=== PATIENT | female | born 1955 | race African-American/Black ===

== ENCOUNTER 2017-06-11 08:30 | Inpatient (IN) | payer BC ==
[2017-06-18] MEDS ORDERED: Fentanyl 250 MCG/5 ML VIAL ONE ×3 (07:14→11:51)
[2017-06-18] MEDS ORDERED: Midazolam HCl 2 mg/2 ml Vial ONE (07:14)
[2017-06-18] MEDS ORDERED: Bupivacaine/Epinephrine 0.25% 30 ML VIAL ONE (07:30)
[2017-06-18] MEDS ORDERED: CEFAZOLIN/Water 2 GM/20 ML SYRINGE ONE (07:39)
[2017-06-18] MEDS ORDERED: Vancomycin HCl 1.5 GM in Sodium Chloride 0.9% 250 ML 300 ML IVPB SCH ×2 (07:45→20:00)
[2017-06-18] MEDS ORDERED: Ondansetron HCl/PF 4 MG/2 ML Vial IVP PRN ×3 (07:49→12:46)
[2017-06-18] MEDS ORDERED: HYDROcodone/Acetaminophen 10/325 mg Tablet PO PRN (07:49)
[2017-06-18] MEDS ORDERED: Promethazine HCl 25 MG/ML VIAL IM PRN ×2 (07:49→12:06)
[2017-06-18] MEDS ORDERED: traMADol HCl 50 MG TAB PO PRN ×2 (07:49→11:35)
[2017-06-18] MEDS ORDERED: Fentanyl 100 MCG/2 ML VIAL IV PRN (07:49)
[2017-06-18] MEDS ORDERED: Ropivacaine 0.2% 550 ML 550 ML NERVE BLCK SCH (07:49)
[2017-06-18] MEDS ORDERED: Fentanyl 100 MCG/2 ML VIAL SLOW IVP PRN (11:35)
[2017-06-18] MEDS ORDERED: diphenhydrAMINE 25 MG CAP PO PRN (11:35)
[2017-06-18] MEDS ORDERED: Acetaminophen 325 MG TAB PO PRN (11:35)
[2017-06-18] MEDS ORDERED: Tranexamic Acid 1,000 MG in Sodium Chloride 0.9% 100 ML IVPB SCH (11:45)
[2017-06-18] MEDS ORDERED: Promethazine HCl 25 MG/ML VIAL SLOW IVP PRN (12:06)
--- NOTE | 2017-06-18 12:44 | RAD ---
LEFT KNEE TWO VIEWS: History: Left knee replacement. FINDINGS: Left knee prosthesis is in place without perihardware lucency. Soft tissue and intraarticular swellin g and gas are apparent. IMPRESSION: Left knee prosthesis is in good radiographic position. POS: [facility]
[2017-06-18] MEDS ORDERED: Non-Formulary Medication 1 EACH PO PRN (12:46)
[2017-06-18] MEDS ORDERED: Promethazine HCl 25 MG/ML VIAL IM/IV PRN (12:46)
[2017-06-18] MEDS: Ketorolac Tromethamine 30 MG/ML VIAL IVP PRN (13:48)
--- NOTE | 2017-06-18 13:48 | OP ---
PREOPERATIVE DIAGNOSIS: Right knee osteoarthritis. POSTOPERATIVE DIAGNOSIS: Right knee osteoarthritis. PROCEDURE PERFORMED: Right total knee arthroplasty. STAFF: Amol Zamudio M.D. TOLL OPERATOR: Joselito Ross PA-C ANESTHESIA: Reyes. The patient received general endotracheal intubation with a single-shot adductor with a saphenous catheter. ESTIMATED BLOOD LOSS: 100 mL TOURNIQUET TIME: 19 minutes, 300 mmHg. ANTIBIOTICS: Ancef 2 grams, vancomycin 1.5 grams, patient received 1 gram of TXA. IMPLANTS: [place] Triathlon A29 patella, 9 mm CS Triathlon X3 poly, size 4 femur CS femur, size 4 ti bial tray. The patient had A29 patella. COMPLICATIONS: None. HISTORY OF PRESENT ILLNESS: Ms. Prado is a pleasant 61-year-old female who presented to me with rig ht knee pain. The patient had significant deformity of her knee. She only had motion for about 10-9 0 degrees. The patient had significant arthritis and pain and pain is rated as a 3-8 of 10. The freya kitchen had pain at all times, desired to have right total knee arthroplasty. I discussed with the charley ent he has significant deformity and may not regain all of her motion. I discussed that she would li teto regain relief. I discussed the increased risks and benefits of surgery, pain, scar, bleeding, i nfection, damage to vital structures, decreased range or strength, failure of procedure, damage to ne rves, arteries, tendons, loss of life or limb, blood clots, need for further surgeries. The patient understood the risks and benefits and elected to proceed. Time out was performed designating the freya kitchen's right lower extremity as the operative site based on sight, consents, and markings. PROCEDURE IN DETAIL: After timeout, the patient's tourniquet was brought up for a total of 90 minute s. Anterior mid incision made with medial patellar arthrotomy, everted the patella. I did take oste ophytes off the patella and off the femur. The patient only was able to flex about 80 degrees on the table after we rongeured the osteophytes off the proximal femur and the patella. We did a medial so ft tissue release taking off the sleeve, excised the fat pad and better exposed the patient's distal femur. We then pinned our tray into position, mapped out distal femur. We cut in 0 degrees varus va lgus, 4 degrees anterior slope and we cut about 11 and 7 respectively, had a good butterfly cut. We removed all the osteophytes and then we removed osteophytes in medial plateau as well as anteriorly, cut the top of the tibial eminences. To then pin our tibial tray into place, we mapped out, cut 2 an d 5 degrees varus valgus, 4 degrees posterior slope, removed the bone, rasped down the medial side, r emoved the osteophytes medially. We then placed lamina commodity merchant medially, excised the medial meniscu s , had a large osteophyte posteriorly which I had to take out with piecemeal curet and some carroll martín when I could see it and removed all those I then knocked off posterior osteophytes. Ensured med ial side was completely released, had all the completion medially. I then moved laterally. I then r emoved osteophytes posteriorly, removed all those, knocked off posterior osteophytes, freed all the l ateral meniscus, ensured that I had good overall position of the patient's lateral meniscus and later al soft tissue compartment, decompressed the TCL completely with all the osteophytes posteriorly, fel t like I had a good decompression. I was overall happy, we then trialled with a size 4, I had a good fit at the 4, we trialed, placed it and pinned into position. We then placed a 9 mm poly, had good tracking and overall liked the alignment and position. I then everted the patella, cut the patella f rom about 23 down to about 14. She had massive osteophytes that had taken up space that I had alread y removed. I trimmed and liked the overall alignment of the patella, placed a drill bit and tracked well. Had no malalignment. We then removed the patella. We then removed and cut our keel for tibia , removed all the implants. We then placed keel into position, removed all our ostephytes and then w ashed. We then cemented our tibia, placed our 9 mm poly. We then cemented our femur, removed excess cement, everted the patella and cemented the patella, radial axis and flexed back up and left turn i n about 15 degrees of flexion. We closed with #2 Vicryl, #2 Quill, 0 Quill, 2-0 Quill, and glue. Th e patient will be admitted for observation overnight, likely potentially need rehab admission. The p don will follow in house.
[2017-06-18] MEDS ORDERED: CEFAZOLIN/Water 2 GM/20 ML SYRINGE SLOW IVP SCH (14:00)
[2017-06-18] MEDS: Dextrose 5 %-0.45 % NaCl 1,000 ML IV SCH ×2 (14:31→21:38)
[2017-06-18] MEDS: HYDROcodone/Acetaminophen 10/325 mg Tablet PO PRN ×3 (14:36→23:45)
[2017-06-18] MEDS ORDERED: Dextrose 50% Abboject 50 ML SYRINGE SLOW IVP PRN (15:06)
[2017-06-18] MEDS ORDERED: Dextrose 5% in Water 1,000 ML IV PRN (15:06)
--- NOTE | 2017-06-18 15:21 | CON ---
DATE OF CONSULTATION: 06/18/2017 PRIMARY CARE PHYSICIAN: Amol Zamudio M.D. CONSULTING PHYSICIAN: Alok Smiley M.D. CHIEF COMPLAINT: Right knee degenerative joint disease. HOSPITAL COURSE: The patient is a pleasant 61-year-old female with history of degenerative joint dis ease. She has undergone a right total knee replacement this admission. She does have a history of h ypertension, dyslipidemia, and obesity. We have been consulted to assist in medical management. Dur ing my interview, the patient denies chest pain. She denies joint pain. She denies shortness of juliana ath, fever, chills, nausea or vomiting. REVIEW OF SYSTEMS: The following complete review of systems was negative, unless otherwise mentioned in the HPI or below: Constitutional: Weight loss or gain, sense of well-being, ability to conduct usual activities, exerc ise tolerance. Skin/Breast: Rash, itching, changes in hair growth or loss, nail changes, breast lumps, tenderness, swelling, nipple discharge. Eyes: Vision, double vision, tearing, blind spots, pain. ENT/Mouth: Headaches (location, time of onset, duration, precipitating factors), vertigo, lightheade dness, injury. Vision, double vision, tearing, blind spots, pain, nose bleeding, colds, obstruction, discharge, dental difficulties, gingival bleeding, dentures, neck stiffness, pain, tenderness, masses in thyroid or other areas Cardiovascular: Precordial pain, substernal distress, palpitations, syncope, dyspnea on exertion, or thopnea, nocturnal paroxysmal dyspnea, edema, cyanosis, hypertension, heart murmurs, varicosities, ph lebitis, claudication. Respiratory: Pain, shortness of breath, wheezing, stridor, cough, hemoptysis, fever or night sweats Gastrointestinal: Poor appetite, dysphagia, indigestion, abdominal pain, heartburn, eructation, naus ea, vomiting, hematemesis, jaundice, constipation, or diarrhea, abnormal stools (denzel-colored, tarry, bloody, greasy, foul smelling), flatulence, hemorrhoids, recent changes in bowel habits. Genitourinary: Urgency, frequency, dysuria, nocturia, hematuria, polyuria, oliguria, unusual (or diamond nge in) color of urine, stones, hesitancy, change in size of stream, dribbling, acute retention or in continence, libido, potency. Musculoskeletal: Pain, swelling, redness or heat of muscles or joints, limitation, of motion, muscul ar weakness, atrophy, cramps. Neurologic/Psychiatric: Convulsions, paralyses, tremor, incoordination, paraesthesias, difficulties with memory of speech, sensory or motor disturbances, or muscular coordination (ataxia, tremor), emot ional problems, anxiety, depression, previous psychiatric care, unusual perceptions, hallucinations. Allergy/Immunologic: Skin rash, anemia, bleeding tendency, polydipsia, polyuria, intolerance to heat or cold. PAST MEDICAL HISTORY: Consistent with hypertension, dyslipidemia, prediabetes, and obesity. SOCIAL HISTORY: Nonsmoker, [employer] employee. Lives with . FAMILY HISTORY: Reviewed and noncontributory. PAST SURGICAL HISTORY: Left total knee replacement. ALLERGIES: No known drug allergies. HOME MEDICATIONS: Aspirin 81 mg every day, atorvastatin 10 mg at bedtime, losartan and hydrochloroth iazide at 100 mg and 25 mg 1 tablet daily, multivitamin 1 tablet every day, and Ambien 5 mg 1 tablet at bedtime as needed. PHYSICAL EXAMINATION: VITAL SIGNS: Her temperature is 36.7 degrees Celsius, blood pressure 138/76, satting 96%, heart rate 91. GENERAL: She is in no acute distress, pleasant, cooperative. HEENT: Normocephalic, atraumatic. LUNGS: Clear to auscultation. CARDIAC: Regular rate and rhythm. No murmurs, regurg, or gallops. ABDOMEN: Obese but nontender, nondistended. EXTREMITIES: No clubbing, cyanosis or edema. There is decreased range of motion of the right leg. NEUROLOGIC: Cranial nerves II-XII grossly intact. She is alert and oriented x3. LABORATORY DATA: CBC from 06/11/2017 shows white blood cell count of 6.0, hemoglobin 13.3, hematocri t 40.4, and platelets 301,000. Coag studies performed on that day showed PT of 13.4, INR 1.0. Chem- 7 from 06/11/2017 show sodium 140, potassium 3.1, chloride 103, CO2 28, BUN 17, creatinine 0.88, gluc ose 142, AST 13, ALT 10, alkaline phosphatase 182, and LDL 95. ASSESSMENT AND PLAN: 1. Right-sided total knee replacement. 2. Hypertension. 3. Dyslipidemia. 4. Prediabetes. PLAN: Patient is admitted to the primary service of Orthopedics. They will manage her pain control and rehabilitation. As far as hypertension, the patient's blood pressure is controlled at this time. We will continue her home regimen and make changes accordingly. For her history of hyperglycemia/p rediabetes, we will perform Accu-Cheks q.a.c. and at bedtime and institute low dose sliding scale ins ulin as needed. DVT prophylaxis will be with SCDs until anticoagulation can be instituted safely pos top.
[2017-06-18] MEDS ORDERED: Ropivacaine 0.2% HCl/PF (40 MG/20 ML VIAL) ONE (17:08)
[2017-06-18] MEDS ORDERED: Ropivacaine 0.5% HCl/PF (150 MG/30 ML VIAL) ONE (17:08)
[2017-06-18] MEDS ORDERED: Propofol 200 MG/20 ML VIAL ONE (17:30)
[2017-06-18] MEDS ORDERED: Lidocaine 1% PF 5 ML VIAL ONE (17:30)
[2017-06-18] MEDS ORDERED: Dexamethasone 20 MG/5 ML VIAL ONE (17:30)
[2017-06-18] MEDS ORDERED: Ondansetron HCl/PF 4 MG/2 ML Vial ONE (17:30)
[2017-06-18] MEDS: HumaLOG 300 UNITS/3 ML VIAL SC PRN ×2 (19:03→21:30)
[2017-06-18] MEDS: CEFAZOLIN/Water 2 GM/20 ML SYRINGE SLOW IVP SCH (19:34)
[2017-06-18] MEDS: Atorvastatin Calcium 10 MG TAB PO SCH (20:50)
[2017-06-18] MEDS: Aspirin 81 mg Enteric Coated Tablet PO SCH (20:50)
[2017-06-18] MEDS ORDERED: Zolpidem Tartrate 5 MG TAB PO SCH ×2 (21:00)
[2017-06-18] MEDS ORDERED: Atorvastatin Calcium 10 MG TAB PO SCH (21:00)
[2017-06-18] MEDS: Zolpidem Tartrate 5 MG TAB PO PRN (21:10)
[2017-06-19] MEDS: CEFAZOLIN/Water 2 GM/20 ML SYRINGE SLOW IVP SCH (02:00)
[2017-06-19] MEDS: traMADol HCl 50 MG TAB PO PRN ×2 (02:40→09:13)
[2017-06-19 06:09] LABS: Hemoglobin 11.4 g/dL (12.0-16.0); Mean Corpuscular HGB CONC 34.4 g/dL (32.0-36.0); Mean Corpuscular Hemoglobin 31.8 pg (27.0-31.0); Mean Corpuscular Volume 92.5 fl (81.0-99.0); Mean Platelet Volume 6.6 fL (7.4-10.4); Platelet Count 248 thou/uL (130-400); RBC Distribution Width 11.8 % (11.5-14.5); Red Blood Cell (RBC) Count 3.59 mill/uL (4.20-5.40); White Blood Cell (WBC) Count 9.3 thou/uL (4.8-10.8)
[2017-06-19] MEDS: HYDROcodone/Acetaminophen 10/325 mg Tablet PO PRN ×4 (06:30→18:38)
[2017-06-19] MEDS: Dextrose 5 %-0.45 % NaCl 1,000 ML IV SCH ×2 (07:07→17:25)
[2017-06-19] MEDS ORDERED: Aspirin 81 mg Enteric Coated Tablet PO SCH (09:00)
[2017-06-19] MEDS ORDERED: Multivitamin W/ Minerals 1 TAB PO SCH (09:00)
[2017-06-19] MEDS: Ketorolac Tromethamine 30 MG/ML VIAL IVP PRN (09:14)
[2017-06-19] MEDS: Senokot S 8.6-50 MG TAB PO SCH ×2 (09:20→20:54)
[2017-06-19] MEDS: Aspirin 81 mg Enteric Coated Tablet PO SCH ×2 (09:20→20:54)
[2017-06-19] MEDS: Ferrous Gluconate 324 MG TAB PO SCH ×2 (09:20→20:53)
[2017-06-19] MEDS: Multivitamin W/ Minerals 1 TAB PO SCH (09:20)
[2017-06-19] MEDS: Losartan/Hydrochlorothiazide 100 mg/25 mg Tablet PO SCH ×2 (09:21→09:23)
--- NOTE | 2017-06-19 11:12 | PDOC.PN ---
- Subjective Encounter Start Date: 06/19/17 Encounter Start Time: 11:11 Subjective: doing well. working with PT at this time - Objective Vital Signs & Weight: Vital Signs (12 hours) Temp Pulse Resp BP Pulse Ox 06/19/17 07:32 98.4 F 69 16 137/70 94 L 06/19/17 05:27 97.8 F 66 16 121/72 98 06/19/17 04:00 97.8 F 66 16 121/72 98 06/19/17 00:00 98.4 F 68 18 134/76 97 Weight Admit Weight 242 lb 15.888 oz Weight 242 lb 15.888 oz I&O: 06/18/17 06/19/17 06/20/17 06:59 06:59 06:59 Intake Total 4175 Output Total 1250 Balance 2925 Result Diagrams: 06/19/17 05:39 Additional Labs: Accuchecks 06/19/17 06/18/17 06/18/17 05:09 21:30 19:00 POC Glucose 148 H 189 H 233 H Phys Exam - Physical Examination Constitutional: NAD HEENT: PERRLA, moist MMs, sclera anicteric Neck: supple, full ROM Respiratory: no wheezing, no rhonchi, clear to auscultation bilateral Cardiovascular: RRR, no significant murmur, no rub Gastrointestinal: soft, non-tender, no distention, positive bowel sounds Musculoskeletal: no edema, pulses present Neurological: normal sensation, moves all 4 limbs Psychiatric: normal affect, A&O x 3 Skin: no rash Dx/Plan (1) History of total right knee replacement (TKR) Code(s): Z96.651 - PRESENCE OF RIGHT ARTIFICIAL KNEE JOINT Status: Acute (2) HTN (hypertension) Code(s): I10 - ESSENTIAL (PRIMARY) HYPERTENSION Status: Acute (3) Hyperglycemia Code(s): R73.9 - HYPERGLYCEMIA, UNSPECIFIED Status: Acute - Plan PT/OT DOING QUITE WELL, REHAB SOON AND D/C PER ORTHO * .
[2017-06-19] MEDS: Zolpidem Tartrate 5 MG TAB PO PRN (20:54)
[2017-06-19] MEDS: Atorvastatin Calcium 10 MG TAB PO SCH (20:54)
[2017-06-20] MEDS: Dextrose 5 %-0.45 % NaCl 1,000 ML IV SCH ×2 (02:53→15:55)
[2017-06-20] MEDS: HYDROcodone/Acetaminophen 10/325 mg Tablet PO PRN ×3 (03:36→13:31)
[2017-06-20 04:46] LABS: Hemoglobin 11.1 g/dL (12.0-16.0); Mean Corpuscular HGB CONC 33.6 g/dL (32.0-36.0); Mean Corpuscular Hemoglobin 31.1 pg (27.0-31.0); Mean Corpuscular Volume 92.6 fl (81.0-99.0); Mean Platelet Volume 6.7 fL (7.4-10.4); Platelet Count 246 thou/uL (130-400); RBC Distribution Width 11.7 % (11.5-14.5); Red Blood Cell (RBC) Count 3.58 mill/uL (4.20-5.40); White Blood Cell (WBC) Count 7.6 thou/uL (4.8-10.8)
[2017-06-20] MEDS: HumaLOG 300 UNITS/3 ML VIAL SC PRN ×2 (06:36→16:10)
[2017-06-20] MEDS: Senokot S 8.6-50 MG TAB PO SCH (08:34)
[2017-06-20] MEDS: Multivitamin W/ Minerals 1 TAB PO SCH (08:34)
[2017-06-20] MEDS: Aspirin 81 mg Enteric Coated Tablet PO SCH (08:34)
[2017-06-20] MEDS: Ferrous Gluconate 324 MG TAB PO SCH (08:34)
[2017-06-20] MEDS: Losartan/Hydrochlorothiazide 100 mg/25 mg Tablet PO SCH ×2 (08:36→08:37)
[2017-06-20] MEDS: traMADol HCl 50 MG TAB PO PRN (10:10)
[2017-06-20 10:22] VITALS: BMI 37.9
--- NOTE | 2017-06-20 10:40 | PDOC.PN ---
- Subjective Encounter Start Date: 06/20/17 Encounter Start Time: 10:40 Subjective: Pain and instability, prefers inpatient rehab. - Objective Vital Signs & Weight: Vital Signs (12 hours) Temp Pulse Resp BP Pulse Ox 06/20/17 08:00 98.2 F 81 20 95 06/20/17 07:08 98.2 F 81 20 126/75 95 06/20/17 04:00 98.7 F 86 19 115/64 95 06/19/17 23:21 98.8 F 85 16 144/66 H 94 L Weight Admit Weight 242 lb 15.888 oz Weight 242 lb I&O: 06/19/17 06/20/17 06/21/17 06:59 06:59 06:59 Intake Total 4175 2170 Output Total 1250 4850 Balance 2925 -7300 Result Diagrams: 06/20/17 04:15 Additional Labs: Accuchecks 06/20/17 06/19/17 06/19/17 05:53 20:27 16:52 POC Glucose 154 H 145 H 105 06/19/17 10:52 POC Glucose 169 H Phys Exam - Physical Examination Constitutional: NAD HEENT: PERRLA, moist MMs, sclera anicteric Neck: supple, full ROM Respiratory: no wheezing, clear to auscultation bilateral Cardiovascular: RRR Gastrointestinal: soft, non-tender, positive bowel sounds Musculoskeletal: no edema, pulses present Neurological: non-focal, moves all 4 limbs Psychiatric: normal affect, A&O x 3 Skin: no rash Dx/Plan (1) History of total right knee replacement (TKR) Code(s): Z96.651 - PRESENCE OF RIGHT ARTIFICIAL KNEE JOINT Status: Acute (2) HTN (hypertension) Code(s): I10 - ESSENTIAL (PRIMARY) HYPERTENSION Status: Acute (3) Hyperglycemia Code(s): R73.9 - HYPERGLYCEMIA, UNSPECIFIED Status: Acute - Plan cont current plan of care, PT/OT awaiting placement s/p rt tkr. htn--stable. hyperglycemia noted. -: pt encouraged to increase physical activity as outpatient or start oral -: hypoglycemics per PCP. * .
[2017-06-20 12:03] LABS: Anion Gap 8 mmol/L (10-20); BUN (Urea Nitrogen) 13 mg/dL (9.8-20.1); Calc. Creatinine Clearance 119 mL/min (70-130); Calcium 9.5 mg/dL (7.8-10.44); Carbon Dioxide 31 mmol/L (22-29); Chloride 100 mmol/L (98-107); Estimated GFR-MDRD 80; Glucose 140 mg/dL (70-105); Potassium 3.4 mmol/L (3.5-5.1); Sodium 136 mmol/L (136-145)
[2017-06-20 16:06] VITALS: BP 151/79; TEMP 98.3
== END 2017-06-20 16:58 | DRG 470 ==
LOC: SURG A 06-18 07:03 → SJJU 06-18 12:06
PROVIDERS: ADMIT Orthopaedic Surgery; ATTEND Orthopaedic Surgery
PROC: 0SRC0J9 Replacement of Right Knee Joint with Synthetic Substitute, Cemented, Open Approach (ICD-10-PCS; principal; 2017-06-18)
DX: M17.11 Unilateral primary osteoarthritis, right knee (principal); E66.9 Obesity, unspecified; E78.5 Hyperlipidemia, unspecified; I10 Essential (primary) hypertension; F32.9 Major depressive disorder, single episode, unspecified; Z68.39 Body mass index [BMI] 39.0-39.9, adult; R73.03 Prediabetes
CPT/HCPCS: 36415; 36416; 80048; 85027; A4306; C1713; C1776; G8978-GP-CK; G8979-GP-CI; G8987-GO-CK; G8988-GO-CI; J1100; J1885; J2001; J2250; J2405; J2704; J2795; J3010; J3370; J7050

== ENCOUNTER 2017-06-11 08:32 | Outpatient (CLI) | payer BC ==
[2017-06-11 10:27] LABS: #Eosinphils 0.1 thou/uL (0.0-0.7); #Monocytes 0.3 thou/uL (0.11-0.59); #Neutrophils 3.6 thou/uL (1.40-6.50); %Basophils 0.1 % (0.0-1.0); %Eosinophils 1.2 % (0.0-10.0); %Lymphocytes 33.5 % (21.0-51.0); %Monocytes 5.7 % (0.0-10.0); %Neutrophils 59.5 % (42.0-75.0); Hemoglobin 13.3 g/dL (12.0-16.0); Mean Corpuscular HGB CONC 32.9 g/dL (32.0-36.0); Mean Corpuscular Hemoglobin 31.1 pg (27.0-31.0); Mean Corpuscular Volume 94.6 fl (81.0-99.0); Mean Platelet Volume 6.8 fL (7.4-10.4); Platelet Count 301 thou/uL (130-400); RBC Distribution Width 11.8 % (11.5-14.5); Red Blood Cell (RBC) Count 4.27 mill/uL (4.20-5.40)
[2017-06-11 10:30] LABS: Bilirubin Negative (Negative); Blood, Urine Negative (Negative); Clarity CLEAR (Clear); Glucose, Urine (Dipstick) Negative (Negative); Leukocyte Negative (Negative); Nitrite Negative (Negative); Protein, Urine (Dipstick) Negative (Neg-Trace); Specific Gravity, Urine 1.016 (1.002-1.036); pH, Urine 6.5 (5.0-9.0)
[2017-06-11 10:32] LABS: PTT 28.6 SEC (22.9-36.1); Prothrombin Time 13.4 SEC (12.0-14.7)
[2017-06-11 10:35] LABS: Bacteria/HPF 1+ HPF (None Seen); Hyaline Casts/LPF 0-3 HYALINE CAST LPF (0-3 Hyaline); Pathc Cast-AUWi Flag 0.27 (0-2.49); RBC/HPF 0-3 HPF (0-3); Squamous Epithelial 0-3 HPF (0-3); WBC/HPF 0-3 HPF (0-3)
[2017-06-11 10:43] LABS: Anion Gap 12 mmol/L (10-20); BUN (Urea Nitrogen) 17 mg/dL (9.8-20.1); Calc. Creatinine Clearance 0 mL/min (70-130); Calcium 9.6 mg/dL (7.8-10.44); Carbon Dioxide 28 mmol/L (22-29); Chloride 103 mmol/L (98-107); Estimated GFR-MDRD 79; Glucose 142 mg/dL (70-105); Potassium 3.1 mmol/L (3.5-5.1); Sodium 140 mmol/L (136-145)
--- NOTE | 2017-06-13 17:33 | EKG ---
Test Reason : Blood Pressure : / mmHG Vent. Rate : 064 BPM Atrial Rate : 064 BPM P-R Int : 200 ms QRS Dur : 094 ms QT Int : 426 ms P-R-T Axes : 060 015 008 degrees QTc Int : 439 ms Normal sinus rhythm Possible Left atrial enlargement Cannot rule out Anterior infarct , age undetermined Abnormal ECG No previous ECGs available Confirmed by DR. Luca SCHWARZ ([id number]) on 06/13/2017 5:33:21 PM Referred By: ILDEFONSO Confirmed By:DR. Luca SCHWARZ
== END 2017-06-11 08:33 | disposition home or self-care (01) ==
LOC: LABBT 08:32
PROVIDERS: ATTEND Orthopaedic Surgery
DX: Z01.818 Encounter for other preprocedural examination (principal); M17.11 Unilateral primary osteoarthritis, right knee
CPT/HCPCS: 80048; 81001; 85025; 85610; 85730; 86850; 86900; 86901; 87081; 93005; 93010

== ENCOUNTER 2017-09-14 20:30 | Outpatient (CLI) | payer BC | END 2017-09-14 20:31 | disposition home or self-care (01) | LOC: SLEEPLAB 20:30 | PROVIDERS: ATTEND Family Medicine | DX: G47.00 Insomnia, unspecified (principal); G47.30 Sleep apnea, unspecified; I10 Essential (primary) hypertension; G47.33 Obstructive sleep apnea (adult) (pediatric) | CPT/HCPCS: 95810 ==